=== PATIENT | male | born 1935 | race Hispanic/Latino ===

== ENCOUNTER 2021-10-16 08:17 | Outpatient (CLI) | payer MEDICARE | END 2021-10-16 08:18 | disposition home or self-care (01) | LOC: ECHO 08:17 | PROVIDERS: ATTEND Internal Medicine Cardiovascular Disease | DX: I08.8 Other rheumatic multiple valve diseases (principal); I71.2 Thoracic aortic aneurysm, without rupture | CPT/HCPCS: 93306; C8929 ==